=== PATIENT | female | born 1955 | race Caucasian/White ===

== ENCOUNTER → 2019-02-25 | Outpatient (CLI) | payer OTHER ==
[~2019-02-25] MED LIST: PRILOSEC40 MG OR
== END | disposition home or self-care (01) ==
LOC: M.RAD 13:00
DX: M16.0 Bilateral primary osteoarthritis of hip (principal); F17.210 Nicotine dependence, cigarettes, uncomplicated; Z82.49 Family history of ischemic heart disease and other diseases of the circulatory system; Z90.49 Acquired absence of other specified parts of digestive tract; Z98.890 Other specified postprocedural states; Z88.0 Allergy status to penicillin

== ENCOUNTER → 2019-08-08 | Outpatient (CLI) | payer MEDICARE | LOC: M.MRI 11:09 | DX: M47.26 Other spondylosis with radiculopathy, lumbar region (principal); M51.16 Intervertebral disc disorders with radiculopathy, lumbar region; M25.78 Osteophyte, vertebrae ==

== ENCOUNTER → 2020-11-24 | Outpatient (CLI) | payer MEDICARE, OTHER ==
[~2020-11-24] MED LIST changes: +LOSARTAN POTAS100 MG PO; +METOPROLOL SUC100 MG PO; +NORVASC5 MG PO; +PROTONIX40 M2 PO; +PROZAC20 M1 PO; +PROZAC20 MG PO; +TUMERIC; +TURMERIC500 M2 PO; +VITAMIN D325 MC3 PO; +ZOLOFT100 MG PO; +ZYRTEC10 M2 PO
[2020-11-24 10:31] LABS: ABSOLUTE BASOPHILS 0.1 thou/uL (0.0-0.2); ABSOLUTE EOSINOPHILS 0.3 thou/uL (0.0-0.7); ABSOLUTE MONOCYTES 0.9 thou/uL (0.0-1.2); ABSOLUTE NEUTROPHILS 3.9 thou/uL (1.6-8.1); BASOPHILS 0.6 %; EOSINOPHILS 4.1 %; HEMATOCRIT 39.3 % (37.0-47.0); HEMOGLOBIN 13.4 gm/dL (12.0-15.0); LYMPHOCYTES 37.1 %; MCH 29.8 pg (26.0-34.0); MCHC 34.1 g/dL (28.0-37.0); MCV 87.3 fL (80.0-100.0); MONOCYTES 10.5 %; MPV 8.3 fl. (7.2-11.1); NUCLEATED RBCS 0 /100WBC; PLATELET COUNT* 284 thou/uL (150-400); POLYS 47.7 %; RDW-CV 13.5 % (10.5-14.5); WBC 8.2 thou/uL (4.0-11.0)
[2020-11-24 10:42] LABS: APTT 27.5 Seconds (25.0-31.3); PROTIME 10.3 Seconds (9.20-11.50)
[2020-11-24 10:43] LABS: ALBUMIN 3.3 g/dL (3.4-5.0); CALCIUM 9.6 mg/dL (8.5-10.1); POTASSIUM 4.6 mmol/L (3.5-5.1); TOTAL BILIRUBIN 0.4 mg/dL (<0.1-1.0)
[2020-11-24 11:39] LABS: ESR (SEDRATE) 30 mm/hr (0-30)
== END ==
LOC: M.LAB 10:10
PROVIDERS: ATTEND Orthopaedic Surgery
DX: Z01.812 Encounter for preprocedural laboratory examination (principal); M17.11 Unilateral primary osteoarthritis, right knee

== ENCOUNTER 2020-11-30 06:32 | Inpatient (IN) | payer MEDICARE, OTHER ==
[~2020-11-30] VITALS: Ht 165.1 cm; Wt 88.9 kg
--- NOTE | ~2020-11-30 | OP ---
[address] [address] OPERATIVE REPORT Name: NELDA GARCIA Room: [address] Ryland Helm#: [id number] Admission: 11/30/20 Attend Phys: Renea Hill Discharge: Date of : 53 Report #: [id number] THIS REPORT FOR: cc: Tonya Gar Robyn L. ARNP Paul, Robert F. DO ~ DOC #: [id number] Romel Pate DO DATE OF SURGERY: 11/30/2020 PREOPERATIVE DIAGNOSIS: Right knee degenerative joint disease. POSTOPERATIVE DIAGNOSIS: Right knee degenerative joint disease. PROCEDURE: Right total knee arthroplasty utilizing the Biomet Vanguard total knee implant system with the following components: 1. A size 62.5 mm cruciate retained cemented femur. 2. A size 71 mm cemented tibial baseplate. 3. A 12 mm anterior stabilized polyethylene liner. 4. A 31 mm asymmetric cemented all poly patella. 5. Two bags of Palacos cement. SURGEON: Fili Rea DO ASSISTANTS: 1. Becca Ronquillo PA-C 2. Janet Lu DO 3. Romel Pate DO ANESTHESIA: General, local capsular block and regional block by anesthesia. FLUIDS: Crystalloid per anesthesia. ESTIMATED BLOOD LOSS: 200 mL DRAINS: None. SPECIMENS: None. COMPLICATIONS: None. CONDITION: Stable to PACU. DISPOSITION: Recovery in the PACU and transferred to the floor. ANTIBIOTICS: 2 [place] [id number] OPERATIVE REPORT Name: NELDA GARCIA Room: [address] Aravind.#: [id number] Admission: 11/30/20 Attend Phys: Renea Hill Discharge: Date of : 53 Report #: [id number] TOURNIQUET TIME: 27 minutes at 300 mmHg. INDICATIONS FOR PROCEDURE: The patient is a very pleasant 65-year-old female who presented to our clinic with longstanding right knee pain. She had x-ray evidence of severe degenerative joint disease. She failed conservative measures and had pain that significantly affected her activities of daily living. We discussed right total knee arthroplasty. The risks, benefits, alternatives and possible complications were discussed at length including but not limited to continued pain, stiffness, fracture, need for repeat surgery, infection, neurovascular or ligamentous injury, DVT, PE, , and anesthetic complications. She expressed her understanding and wished to proceed. DESCRIPTION OF PROCEDURE: The patient was met in the preoperative area. The correct site was marked. Consent was obtained both verbally and written. She was transferred to the operative suite and placed supine on the operative table. She was given benefit of general anesthesia. All bony prominences were well padded. She was secured with a belt. A well-padded tourniquet was applied to the right upper thigh. The right lower extremity was then prepped and draped in the usual sterile fashion. A timeout was performed to verify the correct patient, procedure, and operative site. All in the room were in agreement. The procedure began with a standard anterior midline incision down to the level of the capsule, at which point, a medial parapatellar arthrotomy was made with a new knife. The patella was then everted. The fat pad was debrided. We developed our medial sleeve and released the anterior horns of the medial and lateral menisci. We then were able to fully meme the patella. We used the drill to gain access to the intramedullary canal of the femur. The intramedullary distal femoral cutting guide was placed in 5 degrees of valgus with a 10 mm distal femur cut. The cutting block was secured into placed and the distal femur cut was then made. We then turned our attention to the proximal tibial cut. The extramedullary tibial cutting guide was aligned with the center of the ankle in line with the tibial crest, medial 1/3 of the tibial tubercle and center of the tibial plateau. We dialed in the appropriate slope and coronal alignment. The cutting block was secured into place for an 8 mm cut referenced off of the high lateral side. We then utilized retractors to protect the ligamentous and neurovascular structures. The proximal tibial cut was then made. We then used a 10 mm spacer block to ensure adequate bony resection and a good balance in the coronal plane. We then turned our attention back to the distal femur. We sized the femur appropriately. The correct 4-in-1 cutting block was malleted into place and secured with two nails. We then made our anterior, posterior and chamfer cuts. Excess bone was then removed. We then placed the trial tibia with the correct alignment utilizing the drop tan. This was secured into place with two nails. We then placed the trial femur. We then placed a size 12 trial articular spacer. She was found to have full extension and good range of motion up to 130 degrees. [place] [id number] OPERATIVE REPORT Name: NELDA GARCIA Room: [address] Volodymyr#: [id number] Admission: 11/30/20 Attend Phys: Renea Hill Discharge: Date of : 53 Report #: [id number] mid flexion and deep flexion. We then cut the patella in a freehand fashion and sized this to a 31. Three peg holes were then drilled. The trial patella was found to track well. The trial tibia and patella and articular spacer were then removed. We then reamed and punched the tibia in preparation for the tibial keel. The trial tibia was then removed. We thoroughly irrigated the bony ends. Cement was mixed on back table. Final components were thrown. Cement was placed on the back side of the final components and also onto the bony ends and pressed into the interstices. The final tibial, femoral and patellar components were secured into place. We compressed with a size 12 articular trial spacer. Excess cement was then removed. She had excellent range of motion with full extension and flexion up to 130 degrees. There was good stability. We then removed the trial spacer and removed any excess cement that was in the posterior aspect of the knee. We then placed a final size 12 poly and secured this with the locking bar with a palpable and audible click. She again had excellent range of motion with full extension and stability throughout the mid and deep flexion. We did utilize the tourniquet for approximately 27 minutes during the cementation part of the procedure. The tourniquet was then let down at this point. Hemostasis was obtained with electrocautery. The tissues were injected with 120 mL of local orthopedic pain cocktail about the capsule and periosteum. We then placed 1 gram of vancomycin powder into the knee approximately half within the capsule and half extracapsular. We then closed the capsule with a combination of #1 Vicryl and a #1 running Stratafix suture. We then closed the subcutaneous tissue with 2-0 Monocryl in simple interrupted inverted fashion followed by a 3-0 running subcuticular Stratafix stitch. Surgical glue was placed on the skin and allowed to dry, followed by a sterile Mepilex dressing. The patient tolerated the procedure well and was transferred to the PACU in stable condition with no complications. Needle and sponge counts were correct x 2 at the end of the case. ATTESTATION: Dr. Rea was present and scrubbed throughout all critical aspects of the case. Fili Rea DO /[facility] [place]: 1630 [id number] Rea DO /nt
[2020-11-30 13:00] VITALS: BP 181/71
[2020-11-30 20:00] VITALS: BP 150/58
[2020-12-01 00:41] VITALS: BP 153/59
[2020-12-01 04:00] VITALS: BP 166/56
[2020-12-01 04:05] LABS: CALCIUM 8.7 mg/dL (8.5-10.1); CREATININE 0.9 mg/dL (0.6-1.3); POTASSIUM 4.6 mmol/L (3.5-5.1)
[2020-12-01 04:39] LABS: HEMATOCRIT 36.2 % (37.0-47.0); HEMOGLOBIN 12.1 gm/dL (12.0-15.0); MCHC 33.3 g/dL (28.0-37.0); MCV 87.1 fL (80.0-100.0); MPV 9.7 fl. (7.2-11.1); RBC 4.16 mil/uL (4.20-5.00); RDW-CV 13.8 % (10.5-14.5); WBC 11.1 thou/uL (4.0-11.0)
[2020-12-01 07:30] VITALS: BP 165/62
[2020-12-01] MEDS ORDERED: HYDROCODON-ACE1 EAC5 PO (09:32)
[2020-12-01] MEDS ORDERED: OXYCODONE HCL 55 MG PO (09:55)
[2020-12-01] MEDS ORDERED: ELIQUIS5 MG PO (09:55)
[2020-12-01 16:00] VITALS: BP 159/66
[2020-12-02 00:25] VITALS: BP 151/55
[2020-12-02 04:56] LABS: HEMATOCRIT 31.9 % (37.0-47.0); HEMOGLOBIN 10.7 gm/dL (12.0-15.0)
[2020-12-02 08:10] VITALS: BP 174/68
[2020-12-02 14:42] LABS: ABSOLUTE BASOPHILS 0.1 thou/uL (0.0-0.2); ABSOLUTE EOSINOPHILS 0.2 thou/uL (0.0-0.7); ABSOLUTE LYMPHOCYTES 2.6 thou/uL (0.8-5.3); ABSOLUTE MONOCYTES 1.2 thou/uL (0.0-1.2); ABSOLUTE NEUTROPHILS 8.8 thou/uL (1.6-8.1); BASOPHILS 0.8 %; EOSINOPHILS 1.2 %; HEMOGLOBIN 11.5 gm/dL (12.0-15.0); LYMPHOCYTES 20.2 %; MCH 29.8 pg (26.0-34.0); MCHC 33.8 g/dL (28.0-37.0); MCV 88.1 fL (80.0-100.0); MONOCYTES 9.4 %; NUCLEATED RBCS 0 /100WBC; PLATELET COUNT* 226 thou/uL (150-400); POLYS 68.4 %; RBC 3.85 mil/uL (4.20-5.00); RDW-CV 13.8 % (10.5-14.5); WBC 12.8 thou/uL (4.0-11.0)
[2020-12-02 15:34] VITALS: BP 174/68
[2020-12-02 18:18] VITALS: BP 174/68
[2020-12-03] MEDS ORDERED: ASA81BEC PO (18:29)
== END 2020-12-02 16:30 | disposition home or self-care (01) | DRG 470 ==
LOC: M.ORTHSURG 06:32 → M.TBA 12:29 → M.ORTHSURG 12:29 → M.TBA 12:29 → M.ORTHSURG 19:19
PROVIDERS: Family Medicine; Orthopaedic Surgery; ADMIT Internal Medicine; ATTEND Internal Medicine
PROC: 0SRC0J9 Replacement of Right Knee Joint with Synthetic Substitute, Cemented, Open Approach (ICD-10-PCS; principal; 2020-11-30)
PROC: 3E0T3BZ Introduction of Anesthetic Agent into Peripheral Nerves and Plexi, Percutaneous Approach (ICD-10-PCS; 2020-11-30)
DX: M17.11 Unilateral primary osteoarthritis, right knee (principal); I10 Essential (primary) hypertension; K21.9 Gastro-esophageal reflux disease without esophagitis; G89.29 Other chronic pain

== ENCOUNTER 2020-12-03 08:17 | Inpatient (IN) | payer MEDICARE, OTHER ==
[~2020-12-03] VITALS: Ht 165.1 cm; Wt 90.4 kg
[~2020-12-03 08:17] MED LIST changes: +ELIQUIS5 MG PO; +HYDROCODON-ACE1 EAC5 PO; +OXYCODONE HCL 55 MG PO
[2020-12-03 08:27] VITALS: BP 143/59
[2020-12-03 08:44] LABS: ABSOLUTE BASOPHILS 0.1 thou/uL (0.0-0.2); ABSOLUTE LYMPHOCYTES 1.8 thou/uL (0.8-5.3); ABSOLUTE MONOCYTES 1.2 thou/uL (0.0-1.2); ABSOLUTE NEUTROPHILS 10.7 thou/uL (1.6-8.1); BASOPHILS 0.4 %; EOSINOPHILS 0.3 %; HEMATOCRIT 33.5 % (37.0-47.0); HEMOGLOBIN 11.1 gm/dL (12.0-15.0); MCH 28.9 pg (26.0-34.0); MCHC 33.2 g/dL (28.0-37.0); MPV 8.8 fl. (7.2-11.1); NUCLEATED RBCS 0 /100WBC; PLATELET COUNT* 214 thou/uL (150-400); POLYS 77.3 %; RBC 3.85 mil/uL (4.20-5.00); RDW-CV 13.8 % (10.5-14.5); WBC 13.8 thou/uL (4.0-11.0)
[2020-12-03 08:54] LABS: CALCIUM 8.5 mg/dL (8.5-10.1); CREATININE 0.8 mg/dL (0.6-1.3)
[2020-12-03 08:58] LABS: ALBUMIN 2.7 g/dL (3.4-5.0); TOTAL BILIRUBIN 0.6 mg/dL (<0.1-1.0); TOTAL PROTEIN 6.9 g/dL (6.4-8.2)
[2020-12-03 14:32] VITALS: BP 165/53
[2020-12-03 14:40] LABS: APTT 26.9 Seconds (25.0-31.3); PROTIME 10.7 Seconds (9.20-11.50)
[2020-12-03 15:02] VITALS: BP 188/72
[2020-12-03 16:56] VITALS: BP 194/82
--- NOTE | 2020-12-03 17:44 | EKG ---
[place] [address] ELECTROCARDIOGRAM REPORT Name: NELDA GARCIA Room: [address] ADM IN M.R.#: [id number] Admission: 12/03/20 Attend Phys: Mikayla Shepherd Discharge: Date of : 53 Date of Service: 12/03/20 0843 Report #: [id number] THIS REPORT FOR: //name// [facility] ED Test Date: 2020-12-03 Test Time: 08:43:01 Pat Name: NELDA GARCIA Department: Room: [facility] Gender: F Control Board Operator: CARLOZ : 1955 Requested By: Wes South Order Number: [id number] MD: Homer Isaac Measurements Intervals [place] Rate: 65 P: 27 [place]: 152 QRS: -22 QRSD: 145 T: 85 QT: 443 QTc: 461 Interpretive Statements Sinus rhythm Left bundle branch block Baseline wander in lead(s) II,III,aVL,aVF,V1,V2,V3 Compared to ECG 08/13/2010 08:17:34 No significant changes Electronically Signed On 12-03-2020 17:44:31 CDT by Homer Isaac [email or web address] <ELECTRONICALLY SIGNED> By: Homer Isaac MD, [facility] 12/03/20 1744 0843 Homer Isaac MD, [facility] /EPI
[2020-12-03] MEDS ORDERED: ASA81BEC PO (18:29)
--- NOTE | 2020-12-03 18:55 | NUR ---
Pt admitted from ED at 1500. Pt was discharged yesterday (12/02) following R total knee replacement, and fell today. She sustained a wound to back of head (apoorva placed in ED) and lumbar compression fractures. Pt c/o pain with any movement, and has been very nauseous (see MAR). A&O X4. BP elevated at 180s-190s/80s. Pt has been on bedrest. Kyphoplasty is ordered for tomorrow. Pt has had nothing to eat due to nausea, and tolerating only small sips of H2O. Will continue to monitor.
[2020-12-03 20:00] VITALS: BP 187/69
[2020-12-04] VITALS (10 sets, daily range): BP systolic 122–172; BP diastolic 47–64
[2020-12-04 04:53] LABS: HEMATOCRIT 30.6 % (37.0-47.0); HEMOGLOBIN 10.5 gm/dL (12.0-15.0); MCH 30.1 pg (26.0-34.0); MCHC 34.2 g/dL (28.0-37.0); MCV 87.8 fL (80.0-100.0); MPV 8.9 fl. (7.2-11.1); RBC 3.48 mil/uL (4.20-5.00); RDW-CV 13.8 % (10.5-14.5); WBC 10.6 thou/uL (4.0-11.0)
[2020-12-04 04:58] LABS: PROTIME 10.6 Seconds (9.20-11.50)
--- NOTE | 2020-12-04 06:41 | NUR ---
ASSUMED PT CARE AT APPROX 1930. PT IS AWAEK AND ORIENTED X4. PT IS NOT IN DISTRESS, NO DESATURATIONS NOTED ON 2L OF O2. PT C/O BACK PAIN PARTIALLY RELIEVED BY PAIN MEDICINE GIVEN PER SEP. NAUSEA RELIEVED BY MEDS GIVEN PER SEP. NO ACUTE CHANGES THIS SHIFT. PT IS FOR KYPHOPLASTY TODAY.
--- NOTE | 2020-12-04 08:16 | NUR ---
ASSUMED CARE OF PT THIS AM ARROUND 0715- CARDIAC MOITOR IN PLACE ORDERED, TRACING SR/BBB- UPON ASSESSMENT PT NOTED TO BE RESTING IN BED- PT A&O X4- CONT OF BOWEL AND BLADDER, OCCASSIONAL STRESS INCONT NOTED- PURE-WICK IN PLACE R/T FREQUENCY/BED REST/PT REQUEST- BED REST IN PLACE WITH Q 2 HOUR TURNS INDICATED- LCTA, RESP EVEN AND UN-LABORED- VSS, O2 SAT 97% ON 2L VIA NC- ABD SOFT/ROUND/NON-TENDER, BS X4 QUADS- LAST BM REPORTED X3 DAYS AGO- IV NOTED TO RIGHT AC AND LEFT FA INTACT AND SL- THTH IN PLACE INDICATED- RIGHT KNEE NOTED WITH DRESSING C/D/I, [place] DRAIN NOTED IN PLACE WITH NO DRAINGE NOTED IN CANISTER- PT DENIES PAIN AT TIME OF ASSESSMENT- PT TAKEN AROUND 0800 TO PACU FOR PLANNED KYPHOPLASTY- ALL NEEDS MET AT THIS TIME
--- NOTE | 2020-12-04 10:31 | NUR ---
CM ASSESSMENT: PT IS A READIT THAT D/C'D 12/01/20 WITH OUTPATIENT PT AT [facility]. PT A&O, AND NORMALLY INDEPENDENT WITH ADL'S. PT RESIDES AT HOME WITH SPOUSE AND HE IS AT THE BEDSIDE. PT USES A WALKER FOR MOBILITY. PT HAS 0 HX OF HH OR SNF. PT INFORMS THAT SHE PLANS TO RETURN HOME AT D/C AND CONTINUE OUTPATIENT THERAPY AT [facility]. PT WILL NEED PT/OT EVALS TO DETERMINE IF THIS IS A SAFE D/C PLAN FOR THE PT. CM WILL REMAIN AVAILABLE TO ASSIST AND FOLLOW NEEDED.
[2020-12-05 01:01] VITALS: BP 120/42
[2020-12-05 04:02] VITALS: BP 114/48
--- NOTE | 2020-12-05 04:29 | NUR ---
ASSUMED PT CARE AT APPROX 1930. PT IS AWAKE AND ORIENTED X4. PT IS NOT IN DISTRESS, spO2 IS 88-89 ON ROOM AIR AT AROUND MIDNIGHT, PT IS PUT BACK ON 2L OF O2 TO KEEP spO2 >92%. PAIN MEDICINE GIVEN PER MAR FOR LOWER BACK PAIN WITH RELIEF. NO ACUTE CHANGES THIS SHIFT. CALL LIGHT WITHIN REACH. HIGH FALL PRECAUTIONS IN PLACE. HOURLY ROUNDING DONE FOR PT SAFETY
[2020-12-05 08:00] VITALS: BP 102/43
[2020-12-05] MEDS ORDERED: ASPERCREME1 EACH TOP (11:15)
[2020-12-05 11:45] VITALS: BP 167/63
[2020-12-05 12:20] VITALS: BP 167/63
--- NOTE | 2020-12-05 14:57 | NUR ---
VS CHARTED, SB BBB ON TELE, ROOM AIR- NC@2L HS, UP WITH ONE AND WALKER, HOURLY ROUNDING PERFORMED, POSSESSION, CALL LIGHT AND AT BEDSIDE, REC DISCHARGE ORDERS, REVIEWED WITH PATIENT, TELE MONITOR AND IV REMOVED WITHOUT COMPLICATION. PATIENT TAKEN BY NURSING STAFF IN WHEELCHAIR TO ER EXIT, PICKED UP IN FAMILY CAR BY SPOUSE
== END 2020-12-05 14:05 | disposition home or self-care (01) | DRG 515 ==
LOC: M.ERS 08:17 → M.2W 11:00 → M.TBA-ER 11:00 → M.2W 15:03
PROVIDERS: Emergency Medicine Emergency Medical Services; Radiology Diagnostic Radiology; ADMIT Internal Medicine; ATTEND Internal Medicine
PROC: 0QS03ZZ Reposition Lumbar Vertebra, Percutaneous Approach (ICD-10-PCS; principal; 2020-12-04)
PROC: 0QU03JZ Supplement Lumbar Vertebra with Synthetic Substitute, Percutaneous Approach (ICD-10-PCS; principal; 2020-12-04)
DX: S32.019A Unspecified fracture of first lumbar vertebra, initial encounter for closed fracture (principal); J96.01 Acute respiratory failure with hypoxia; K21.9 Gastro-esophageal reflux disease without esophagitis; W18.39XA Other fall on same level, initial encounter; I10 Essential (primary) hypertension; Z96.651 Presence of right artificial knee joint; Z20.822 Contact with and (suspected) exposure to COVID-19; Z90.49 Acquired absence of other specified parts of digestive tract; Z79.899 Other long term (current) drug therapy; Z79.01 Long term (current) use of anticoagulants; Z88.1 Allergy status to other antibiotic agents; Z88.0 Allergy status to penicillin; Y93.89 Activity, other specified; Y92.89 Other specified places as the place of occurrence of the external cause; Y99.8 Other external cause status

== ENCOUNTER 2020-12-08 23:19 | Observation (INO) | payer MEDICARE, OTHER ==
[~2020-12-08] VITALS: Ht 165.1 cm; Wt 86.2 kg
[~2020-12-08 23:19] MED LIST changes: +ASA81BEC PO; +ASPERCREME1 EACH TOP
[2020-12-08 23:22] VITALS: BP 226/88
[2020-12-08 23:51] LABS: ABSOLUTE BASOPHILS 0.1 thou/uL (0.0-0.2); ABSOLUTE EOSINOPHILS 0.1 thou/uL (0.0-0.7); ABSOLUTE LYMPHOCYTES 2.6 thou/uL (0.8-5.3); ABSOLUTE MONOCYTES 1.1 thou/uL (0.0-1.2); ABSOLUTE NEUTROPHILS 9.1 thou/uL (1.6-8.1); BASOPHILS 1.1 %; EOSINOPHILS 0.6 %; HEMATOCRIT 36.7 % (37.0-47.0); HEMOGLOBIN 12.3 gm/dL (12.0-15.0); LYMPHOCYTES 20.1 %; MCHC 33.6 g/dL (28.0-37.0); MCV 86.4 fL (80.0-100.0); MONOCYTES 8.7 %; MPV 8.2 fl. (7.2-11.1); NUCLEATED RBCS 0 /100WBC; PLATELET COUNT* 353 thou/uL (150-400); POLYS 69.5 %; RBC 4.24 mil/uL (4.20-5.00); RDW-CV 13.9 % (10.5-14.5); WBC 13.1 thou/uL (4.0-11.0)
[2020-12-08 23:55] LABS: CALCIUM 9.1 mg/dL (8.5-10.1); CREATININE 0.9 mg/dL (0.6-1.3)
[2020-12-08 23:59] LABS: ALBUMIN 3.1 g/dL (3.4-5.0); MAGNESIUM 1.9 mg/dL (1.8-2.4); TOTAL BILIRUBIN 0.7 mg/dL (<0.1-1.0); TOTAL PROTEIN 7.9 g/dL (6.4-8.2)
[2020-12-09 00:07] LABS: BE 0.9 mmol/L (-2 to +3); PCO2 29.2 mmHg (35.0-45.0); PO2 64.6 mmHg (75.0-100.0); pH 7.514 (7.340-7.450)
[2020-12-09 00:09] LABS: POTASSIUM 2.8 mmol/L (3.5-5.1)
[2020-12-09 00:19] LABS: URINE BLOOD TRACE (Negative); URINE CLARITY CLEAR; URINE COLOR YELLOW; URINE GLUCOSE-RANDOM NEGATIVE (Negative); URINE KETONES 2+ (Negative); URINE LEUKOCYTES-REFLEX NEGATIVE (Negative); URINE NITRITE-REFLEX NEGATIVE (Negative); URINE PROTEIN 1+ (Negative)
[2020-12-09 00:22] LABS: ICTOTEST (BILI CONFIRMATORY) Negative (Negative); URINE BILIRUBIN 1+ (Negative)
[2020-12-09 02:18] VITALS: BP 139/54
[2020-12-09 04:00] VITALS: BP 126/51
--- NOTE | 2020-12-09 04:00 | NUR ---
PT A+OX4 BUT SLEEPY FROM [place]. DENIES PAIN AND NAUSEA @ THIS TIME. RECENT ADMISSIONS FOR RT KNEE SURGERY AND THEN FELL AFTER DISCHARGE. WAS READMITTED FOR COMPRESSION FRACUTURE IN BACK AND DISCHARGED YESTERDAY. RETURN FOR HYPOTENSION AND NAUSEA. VSS. PT HAS BEEN SLEEPING OTHER THAN ANSWERING ASSESSMENT QUESTIONS.
[2020-12-09 05:31] VITALS: BP 126/51
[2020-12-09 08:00] VITALS: BP 140/53
--- NOTE | 2020-12-09 10:34 | EKG ---
[place] [address] ELECTROCARDIOGRAM REPORT Name: NELDA GARCIA [address]#: [id number] Admission: 12/09/20 Attend Phys: Seth Lopez Discharge: Date of : 53 Date of Service: 12/08/20 2325 Report #: [id number] THIS REPORT FOR: //name// [facility] ED Test Date: 2020-12-08 Test Time: 23:25:32 Pat Name: NELDA GARCIA Department: Room: [facility] Gender: F Digital Proofing And Platemaker: ANTOLIN : 1955 Requested By: Taina Crook Order Number: [id number] MD: Saul Menjivar Measurements Intervals [place] Rate: 64 P: 16 MA: 140 QRS: -18 QRSD: 150 T: -2 QT: 545 QTc: 563 Interpretive Statements Sinus rhythm Left bundle branch block Compared to ECG 12/03/2020 08:43:01 No significant changes Electronically Signed On 12-09-2020 10:34:23 CDT by Saul Menjivar [email or web address] <ELECTRONICALLY SIGNED> By: Saul Menjivar MD, [facility] 12/09/20 1034 2325 2325 Saul Menjivar MD, [facility] /EPI
[2020-12-09 12:00] VITALS: BP 127/60
--- NOTE | 2020-12-09 17:06 | NUR ---
CM ASSESSMENT: PT IS KNOWN TO THIS CM FROM PREVIOUS ADMISSIONS. PT RECENTLY D/C'D 12/05/20 WITH PLAN TO CONTINUE OUTPATIENT PT/OT AT [facility] [place]. IT IS UNCLEAR IF PT HAS BEEN ABLE TO MAKE IT TO [facility] FOR HER OUTPATIENT THERAPY. THIS ADMIT IS PT'S 3RD ADMIT IN LESS THAN A MONTH. PT DECLINED HH LAST 2 ADMISSIONS. CM ATTEMPTED TO SPEAK TO THE PT AND HER SPOUSE AT THE BEDSIDE TO DISCUSS HER PLAN OF CARE AND POSSIBILITY OF NEED HH VS SNF AT D/C D/T READMIT. PT NOT RESPONDING TO CM QUESTIONS AND APPEARS DROWSY. PT'S SPOUSE INFORMS THAT HE IS CONCERNED WELL WITH PT'S MOBILITY AND ABILITY TO RETURN HOME SAFELY AT D/C. HOWEVER HE INFORMS THAT 'SHE IS JUST WAY TOO SICK TO TALK ABOUT THAT NOW'. CM WILL F/U WITH THE PT AND HER SPOUSE TO DISCUSS POSS HH VS SNF PRIOR TO D/C. PT WILL NEED NEW PT/OT ORDERS TO ASSESS PT'S MOBILITY AND DETERMINE NEED FOR HH VS SNF AT D/C. CM WILL REMAIN AVAILABLE TO ASSIST AND FOLLOW NEEDED.
--- NOTE | 2020-12-09 18:46 | NUR ---
RECEVIED REPORT AROUND 714. ASSUMED CARE. VS AND ASSESSMENT CHARTED. IV INTACT LEFT AC. HEART MONITOR ATTACHED AT BBB. PT UP STAND BY ASSIST WITH WALKER. PT BROUGHT OWN WALKER FROM HOME. PT LYING IN BED NOW. MEDS GIVEN PER SEP. HOURLY ROUNDING PERFORMED. PT REPORTED NAUSEA THROUGH OUT SHIFT. CALL LIGHT WITH IN REACH. WILL CONTINUE TO MONITOR.
[2020-12-10] VITALS: BP 142/57
[2020-12-10 04:00] VITALS: BP 144/51
[2020-12-10 04:13] LABS: ABSOLUTE BASOPHILS 0.1 thou/uL (0.0-0.2); ABSOLUTE EOSINOPHILS 0.2 thou/uL (0.0-0.7); ABSOLUTE LYMPHOCYTES 3.7 thou/uL (0.8-5.3); ABSOLUTE MONOCYTES 1.2 thou/uL (0.0-1.2); ABSOLUTE NEUTROPHILS 5.2 thou/uL (1.6-8.1); BASOPHILS 0.5 %; EOSINOPHILS 2.4 %; HEMATOCRIT 29.2 % (37.0-47.0); LYMPHOCYTES 35.6 %; MCH 29.8 pg (26.0-34.0); MCHC 34.2 g/dL (28.0-37.0); MCV 87.2 fL (80.0-100.0); MONOCYTES 11.1 %; NUCLEATED RBCS 0 /100WBC; PLATELET COUNT* 291 thou/uL (150-400); POLYS 50.4 %; RBC 3.35 mil/uL (4.20-5.00); RDW-CV 14.2 % (10.5-14.5); WBC 10.4 thou/uL (4.0-11.0)
[2020-12-10 04:25] LABS: ALBUMIN 2.4 g/dL (3.4-5.0); CREATININE 0.7 mg/dL (0.6-1.3); TOTAL BILIRUBIN 0.5 mg/dL (<0.1-1.0); TOTAL PROTEIN 6.2 g/dL (6.4-8.2)
[2020-12-10 04:29] LABS: POTASSIUM 2.9 mmol/L (3.5-5.1)
--- NOTE | 2020-12-10 06:29 | NUR ---
NO ACUTE CHANGES THROUGHOUT SHIFT. ALL ROUNDINGS COMPLETED, ALL NEEDS MET. SEE CHARTING FOR DETAILS.
[2020-12-10 09:26] VITALS: BP 192/68
[2020-12-10] MEDS ORDERED: DICLOFENAC SOD100 G1 TOP (11:25)
[2020-12-10] MEDS ORDERED: IBUPROFEN 200200 M1 PO ×2 (11:25→17:09)
[2020-12-10 11:30] LABS: CREATININE 0.9 mg/dL (0.6-1.3); POTASSIUM 3.1 mmol/L (3.5-5.1)
[2020-12-10 12:00] VITALS: BP 192/64
--- NOTE | 2020-12-10 12:35 | NUR ---
NICKY SPK WITH PT,CRISTIAN, WHO IFNORMED NICKY HER RECOMMENDATION IS HOME WITH OUTPATIENT THERAPPY. CM SPK WITH PT AND SPOUSE. PT IS CURRENT WITH [facility] RECEIVING KNEE THERAPY, PT WOULD LIKE TO CONT W/[facility] OUTPATIENT. PER PT THERE WILL BE NO DME NEEDS AT THIS TIME.
--- NOTE | 2020-12-10 12:39 | NUR ---
WOUND CARE: CONSULTED FOR ABRASION TO RIGHT HIP THAT WAS PRESENT ON ADMIT. OPEN AREA MEASURES 6CM X 1CM X 0.1CM. WOUND BED IS RED IN COLOR WITH FLAT ATTACHED WOUND MARGIN AND PERISKIN WNL. NO DRAINAGE NOTED. PHOTO TAKEN AND PLACED IN CHART. AREA CLEASED WITH SOAP AND WATER AND PAT DRY. EXUDERM SATIN DRESSING APPLIED TO AREA. PATIENT EDUCATION COMPLETED ON WOUND/DRESSING CARE AND S/S OF INFECTION. ALSO EDUCATED AT BEDSIDE. BOTH VOICED UDERSTANDING AND AGREE.
[2020-12-10] MEDS ORDERED: COMPAZINE10 MG PO (13:55)
[2020-12-10] MEDS ORDERED: TYLENOL EXTRA500 MG PO ×2 (13:55→17:09)
[2020-12-10] MEDS ORDERED: ZOFRAN4 MG PO (13:55)
[2020-12-10 14:16] VITALS: BP 192/68
--- NOTE | 2020-12-10 14:50 | NUR ---
EVALUATION COMPLETED BY ANGIE DENNY THIS DAY. THIS MOLD PREPARER IS IN AGREEMENT WITH EVALUATION DOCUMENTATION AND RECOMMENDATIONS. CRISTIAN MCINTOSH, KENNEDYT
[2020-12-10 16:54] VITALS: BP 192/68
[2020-12-10] MEDS ORDERED: NEURONTIN 300M300 M2 PO (17:09)
--- NOTE | 2020-12-10 17:20 | NUR ---
PT DCD TO HOME IN STABLE CODNITION.DC INSTRUCTIONS REVIEWED WITH PT AND SPOUSE WHO REPORT UNDERSTANDING WITHOUT FURTHER QUESTIONS.[facility] BY NURSING STAFF WITH ALL OF SAYDA.
== END 2020-12-10 17:20 | disposition home or self-care (01) ==
LOC: M.ERS 23:19 → M.TBA-ER 12-09 01:45 → M.2W 12-09 02:01
PROVIDERS: Personal Emergency Response Attendant; ADMIT Internal Medicine; ATTEND Internal Medicine
DX: R11.2 Nausea with vomiting, unspecified (principal); E87.6 Hypokalemia; Z20.822 Contact with and (suspected) exposure to COVID-19; R94.5 Abnormal results of liver function studies; G89.29 Other chronic pain; M25.569 Pain in unspecified knee; M54.9 Dorsalgia, unspecified; R19.7 Diarrhea, unspecified; R53.1 Weakness; I10 Essential (primary) hypertension; Z88.1 Allergy status to other antibiotic agents; Z88.0 Allergy status to penicillin; Z90.49 Acquired absence of other specified parts of digestive tract; Z87.891 Personal history of nicotine dependence